=== PATIENT | female | born 1975 | race Caucasian/White ===

== ENCOUNTER → 2018-08-09 | Outpatient (CLI) | payer BC ==
[~2018-08-09] MED LIST: DOCU100 PO; ERGO400 PO; FERR325 PO; OXYACE5T PO
== END | disposition home or self-care (01) ==
LOC: LAB SHORT 15:23 → LAB EV 15:23
DX: N39.0 Urinary tract infection, site not specified (principal)
CPT/HCPCS: 87086

== ENCOUNTER → 2024-06-02 | Outpatient (CLI) | payer BC ==
[~2024-06-02] MED LIST changes: +ALBU90OI61 INH
== END ==
LOC: LAB SHORT 15:09 → LAB 15:09
DX: R39.15 Urgency of urination (principal)
CPT/HCPCS: 87086

== ENCOUNTER → 2024-10-17 | Outpatient (CLI) | payer BC | LOC: LAB SHORT 11:56 → LAB 11:56 | DX: R39.9 Unspecified symptoms and signs involving the genitourinary system (principal) | CPT/HCPCS: 87086 ==